=== PATIENT | female | born 1935 | race Asian ===

== ENCOUNTER 2016-11-23 11:38 | Day surgery (SDC) | payer MEDICARE, OTHER ==
[2016-11-23] VITALS (8 sets, daily range): BP systolic 94–115; BP diastolic 38–75; PULSE 68–81; TEMP 98.6
[~2016-11-23] VITALS: Ht 152.4 cm; Wt 55.5 kg
[~2016-11-23 11:38] MED LIST: ASPIRIN E.C. 8181 MG PO; COREG 3.123.125 MG/T PO; ELIQUIS 5MG PO; EX-LAX25 MG PO; IMDUR 30MG30 MG/TAB PO; NEXIUM 40MG40 MG PO; NITROQUICK0.4 MG SL; PLAVIX 75MG TAB75 MG PO; PRINIVIL5 MG PO; ZOCOR 20MG20 MG PO
[2016-11-23] MEDS ORDERED: COREG 3.123.125 MG/T PO (12:09)
[2016-11-23] MEDS ORDERED: RANEXA 500MG T500 MG PO (12:10)
[2016-11-23] MEDS ORDERED: NEXIUM 40MG40 MG PO (12:11)
[2016-11-23] MEDS ORDERED: ASPIRIN 81M81 MG/TA2 PO (12:12)
[2016-11-23 12:27] LABS: MEAN CELL VOLUME 103 fl (80.0-100.0); MEAN CORPUSCULAR HEMOGLOBIN 35 pg (27.0-31.0); MEAN CORPUSCULAR HGB CONC 34 g/dl (33.0-37.0); MEAN PLATELET VOLUME 9.4 fl (7.4-10.4); PLATELET COUNT 201 K/mm3 (130-400); RED BLOOD COUNT 3.42 M/mm3 (4.10-5.30); REDCELL DISTRIBUTION WIDTH-CV 11.8 % (11.5-14.5); WHITE BLOOD COUNT 7.1 K/mm3 (4.8-10.8)
[2016-11-23 12:28] LABS: HEMATOCRIT 35.2 % (37.0-47.0)
[2016-11-23 12:32] LABS: PROTHROMBIN TIME 10.9 SECONDS (9.7-12.8)
[2016-11-23 12:53] LABS: CALCIUM 9.3 mg/dL (8.4-10.2); CREATININE, serum 0.9 mg/dL (0.52-1.25); POTASSIUM 4.7 mmol/L (3.4-5.0)
[2016-11-23] MEDS ORDERED: CEPHALEXIN500 M1 PO (15:23)
== END 2016-11-23 17:30 | disposition home or self-care (01) ==
LOC: EUO 11:38
PROVIDERS: Internal Medicine Interventional Cardiology
DX: Z45.02 Encounter for adjustment and management of automatic implantable cardiac defibrillator (principal); I50.22 Chronic systolic (congestive) heart failure; I27.2 Other secondary pulmonary hypertension; I08.0 Rheumatic disorders of both mitral and aortic valves
CPT/HCPCS: C1721; J0690; J2250; J3010; J7030

== ENCOUNTER 2021-03-15 08:07 | Day surgery (SDC) | payer MEDICARE, OTHER ==
[~2021-03-15] VITALS: Ht 152.4 cm; Wt 39.8 kg
[2021-03-15] VITALS (12 sets, daily range): BP systolic 88–122; BP diastolic 42–77; PULSE 72–84; TEMP 98.1
[~2021-03-15 08:07] MED LIST changes: +ASPIRIN 81M81 MG/TA2 PO; +CEPHALEXIN500 M1 PO; -NITROQUICK0.4 MG SL; +NITROSTAT0.4 MG/TAB SL; +RANEXA 500MG T500 MG PO
[2021-03-15 09:04] LABS: HEMATOCRIT 31.6 % (37.0-47.0); HEMOGLOBIN 10.9 g/dl (12.5-16.0); MEAN CELL VOLUME 101 fl (80.0-100.0); MEAN CORPUSCULAR HEMOGLOBIN 35 pg (27.0-31.0); MEAN CORPUSCULAR HGB CONC 35 g/dl (33.0-37.0); MEAN PLATELET VOLUME 9.2 fl (7.4-10.4); PLATELET COUNT 159 K/mm3 (130-400); RED BLOOD COUNT 3.13 M/mm3 (4.10-5.30); REDCELL DISTRIBUTION WIDTH-CV 12.2 % (11.5-14.5)
[2021-03-15 09:12] LABS: INR 1.1 (0.8-3.0); PROTHROMBIN TIME 11.7 SECONDS (9.7-12.8)
[2021-03-15 09:15] LABS: PARTIAL THROMBOPLASTIN TIME 29.6 SECONDS (26.0-37.0)
[2021-03-15 09:22] LABS: CALCIUM 8.9 mg/dL (8.4-10.2); CREATININE, serum 0.82 mg/dL (0.57-1.11)
--- NOTE | 2021-03-15 11:13 | NUR ---
SEE MERGE DOCUMENTATION FOR MEDICATION ADMINISTRATION TIMES AND INTRA/POST PROCEDURE SEDATION ASSESSMENTS. 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 EDUCATION PROVIDED AND ALL QUESTION ANSWERED PRIOR TO PROCEDURE THROUGH USE OF PROFESSIONAL REWARDS CONSULTANT VIA AUDIO LANGUAGE LINE.
--- NOTE | 2021-03-15 12:50 | NUR ---
Report from Derick LAFLEUR. Transferred from Am[employer] Sulf[employer] Operator by bed. Alert and oriented. VSS. Left tband with 14 cc air CD&I, good pulses and cap refill < 3 secs. Right groin site soft to palpation and drsg CD&I.
--- NOTE | 2021-03-15 13:22 | NUR ---
Report received from Dwight Diaz.
--- NOTE | 2021-03-15 16:26 | NUR ---
Report to Dwight Diaz.
--- NOTE | 2021-03-15 17:17 | NUR ---
Left Tband discontinued and dressing applied. INT discontinued intact. Right groin CD&I and soft to palpation. Up to bathroom with steady gait. Getting dressed
--- NOTE | 2021-03-15 17:57 | NUR ---
Transferred to private car by ren. Discharge instructions given to friend Mindy
== END 2021-03-15 17:58 | disposition home or self-care (01) ==
LOC: COL.CAR 08:07
PROVIDERS: Internal Medicine Cardiovascular Disease
DX: I25.118 Atherosclerotic heart disease of native coronary artery with other forms of angina pectoris (principal); T82.855A Stenosis of coronary artery stent, initial encounter; I11.0 Hypertensive heart disease with heart failure; I50.20 Unspecified systolic (congestive) heart failure; E78.5 Hyperlipidemia, unspecified; I73.9 Peripheral vascular disease, unspecified; Z95.1 Presence of aortocoronary bypass graft; Z79.899 Other long term (current) drug therapy; Z95.810 Presence of automatic (implantable) cardiac defibrillator; Z79.82 Long term (current) use of aspirin
CPT/HCPCS: C1769; C1887; C1894; J1644; J2250; J3010; J7030; Q9967